=== PATIENT | male | born 1995 | race Caucasian/White ===

== ENCOUNTER 2017-11-30 20:16 | Emergency (ER) | payer MEDICAID ==
[~2017-11-30] VITALS: Ht 154.9 cm; Wt 59.0 kg
[~2017-11-30 20:16] MED LIST: GABA-529 PO; LAM15 PO; LURA40TA PO
[2017-11-30] MEDS ORDERED: ACETAMINOPHEN 325MG TABLET PO STA (22:32)
[2017-11-30 22:55] LABS: BASOPHILS % 0.4 % (0.0-2.0); EOSINOPHILS % 1.3 % (0.0-5.0); HEMATOCRIT. 43.6 % (42.0-52.0); HEMOGLOBIN. 15.3 g/dL (14.0-18.0); LYMPHOCYTES % 25.8 % (20.0-50.0); MEAN CORPUSCULAR VOLUME 93.7 fL (80.0-94.0); MEAN PLATELET VOLUME 8.5 fl (7.4-10.4); MONOCYTES % 6.4 % (2.0-8.0); NEUTROPHILS % 66.1 % (40.0-76.0); PLATELET 190 x1000/uL (130-400); RED BLOOD CELL COUNT 4.65 mill/uL (4.7-6.1)
[2017-11-30 23:01] LABS: CHLORIDE 106 mEq/L (98-107)
[2017-12-01 01:06] LABS: CLARITY URINE CLEAR (CLEAR); COLOR URINE YELLOW (YELLOW); PH URINE 8.5 (4.5-8.0); SPECIFIC GRAVITY URINE 1.016 (1.005-1.030)
[2017-12-01 01:07] LABS: KETONES URINE NEGATIVE (NEGATIVE); LEUKOCYTE ESTERASE URINE NEGATIVE (NEGATIVE); NITRITE URINE NEGATIVE (NEGATIVE); OCCULT BLOOD URINE TRACE (NEGATIVE); PROTEIN URINE NEGATIVE (NEGATIVE)
[2017-12-01 02:04] VITALS: BP 109/50
[2017-12-05 04:17] LABS: CHLAMYDIA TRACHOMATIS NAA Negative (Negative); NEISSERIA GONORRHOEAE NAA Negative (Negative)
== END 2017-12-01 04:23 | disposition home or self-care (01) ==
LOC: ER 20:16
DX: R10.30 Lower abdominal pain, unspecified (principal); R30.0 Dysuria; R39.11 Hesitancy of micturition; R39.15 Urgency of urination; R32 Unspecified urinary incontinence; J45.909 Unspecified asthma, uncomplicated; Z88.0 Allergy status to penicillin
CPT/HCPCS: 36415; 74176; 80053; 81003; 85025; 87491; 87591; 99285; A4315

== ENCOUNTER 2017-12-16 16:02 | Emergency (ER) | payer MEDICAID ==
[~2017-12-16] VITALS: Ht 154.9 cm; Wt 80.0 kg
[2017-12-16 18:20] LABS: BASOPHILS % 0.5 % (0.0-2.0); CHLORIDE 105 mEq/L (98-107); EOSINOPHILS % 1.7 % (0.0-5.0); HEMOGLOBIN. 16.2 g/dL (14.0-18.0); LYMPHOCYTES % 22.4 % (20.0-50.0); MEAN CORPUSCULAR HEMOGLOBIN 33.3 pg (28.0-32.0); MEAN CORPUSCULAR VOLUME 94.9 fL (80.0-94.0); MEAN PLATELET VOLUME 9.1 fl (7.4-10.4); MONOCYTES % 5.3 % (2.0-8.0); NEUTROPHILS % 70.1 % (40.0-76.0); PLATELET 218 x1000/uL (130-400); RED BLOOD CELL COUNT 4.85 mill/uL (4.7-6.1); RED CELL DISTRIBUTION WIDTH 14.2 % (11.6-14.6)
[2017-12-16 18:21] LABS: PROTHROMBIN TIME 10.5 sec (9.4-11.6)
[2017-12-16 21:25] LABS: CLARITY URINE TURBID (CLEAR); COLOR URINE YELLOW (YELLOW); KETONES URINE NEGATIVE (NEGATIVE); LEUKOCYTE ESTERASE URINE NEGATIVE (NEGATIVE); NITRITE URINE NEGATIVE (NEGATIVE); OCCULT BLOOD URINE NEGATIVE (NEGATIVE); PH URINE 8.5 (4.5-8.0); PROTEIN URINE NEGATIVE (NEGATIVE); SPECIFIC GRAVITY URINE 1.022 (1.005-1.030)
[2017-12-16] MEDS ORDERED: KETOROLAC 60MG/2ML VIAL IM ONE (21:45)
[2017-12-16] MEDS ORDERED: IBUPROFEN 600MG TABLET PO ONE (21:45)
[2017-12-16 21:55] VITALS: BP 129/70
== END 2017-12-16 22:05 | disposition home or self-care (01) ==
LOC: ER 16:51
DX: R10.9 Unspecified abdominal pain (principal); J45.909 Unspecified asthma, uncomplicated; F12.10 Cannabis abuse, uncomplicated; Z88.0 Allergy status to penicillin
CPT/HCPCS: 36415; 76770; 80053; 81003; 85025; 85610; 87086; 96372; 99285; J1885; Z7610

== ENCOUNTER 2018-08-06 07:03 | Emergency (ER) | payer MEDICAID ==
[~2018-08-06] VITALS: Ht 154.9 cm; Wt 84.0 kg
[2018-08-06] MEDS ORDERED: ONDANSETRON 4MG/5ML UDC PO ONE (09:45)
[2018-08-06 10:23] LABS: CLARITY URINE CLEAR (CLEAR); COLOR URINE YELLOW (YELLOW); KETONES URINE TRACE (NEGATIVE); LEUKOCYTE ESTERASE URINE 1+ (NEGATIVE); NITRITE URINE NEGATIVE (NEGATIVE); OCCULT BLOOD URINE 1+ (NEGATIVE); PH URINE 6.5 (4.5-8.0); PROTEIN URINE NEGATIVE (NEGATIVE); UROBILINOGEN URINE 0.2 E.U./dL (0.2-1.0)
[2018-08-06 10:38] VITALS: BP 120/70
== END 2018-08-06 10:52 | disposition home or self-care (01) ==
LOC: ER 07:03
DX: N39.0 Urinary tract infection, site not specified (principal); J45.909 Unspecified asthma, uncomplicated; F31.9 Bipolar disorder, unspecified; F12.10 Cannabis abuse, uncomplicated; Z88.0 Allergy status to penicillin
CPT/HCPCS: 99283

== ENCOUNTER 2022-05-01 03:35 | Emergency (ER) | payer MEDICAID, OTHER ==
[~2022-05-01] VITALS: Ht 165.1 cm; Wt 91.0 kg
[~2022-05-01 03:35] MED LIST changes: +IBUP-2029 MT; -LURA40TA PO; +LURA40TA2 PO
[2022-05-01] MEDS ORDERED: TETANUS, DIPHTHERIA, PERTUSSIS VAC/PF 0.5ML (>10YR OLD) IM ONE ×2 (04:00→09:30)
[2022-05-01 04:20] LABS: BASOPHILS % 0.6 % (0.0-2.0); EOSINOPHILS % 1.5 % (0.0-5.0); HEMATOCRIT. 42.1 % (42.0-52.0); HEMOGLOBIN. 14.4 g/dL (14.0-18.0); LYMPHOCYTES % 33.3 % (20.0-50.0); MEAN CORPUSCULAR HEMOGLOBIN 28.8 pg (28.0-32.0); MEAN CORPUSCULAR VOLUME 84.4 fL (80.0-94.0); MEAN PLATELET VOLUME 8.6 fl (7.4-10.4); MONOCYTES % 6.6 % (2.0-8.0); PLATELET 212 x1000/uL (130-400); RED BLOOD CELL COUNT 4.99 mill/uL (4.7-6.1); RED CELL DISTRIBUTION WIDTH 14.4 % (11.6-14.6)
[2022-05-01 04:21] LABS: CHLORIDE 105 mEq/L (98-107)
[2022-05-01 04:27] LABS: ETHANOL BLOOD < 10 mg/dL
[2022-05-01] MEDS: LAMOTRIGINE 150MG TABLET PO SCH ×2 (10:09→21:00)
[2022-05-01] MEDS ORDERED: LORAZEPAM 1MG TABLET PO ONE ×3 (12:00→19:15)
[2022-05-01] MEDS ORDERED: NICOTINE 14MG PATCH TD ONE (18:15)
[2022-05-01] MEDS ORDERED: GABAPENTIN 300MG CAPSULE PO ONE (18:15)
[2022-05-01] MEDS: OLANZAPINE 10MG TABLET PO SCH (21:00)
[2022-05-02] MEDS: LAMOTRIGINE 150MG TABLET PO SCH ×2 (09:48→20:43)
[2022-05-02] MEDS ORDERED: GABAPENTIN 300MG CAPSULE PO STA (09:48)
[2022-05-02] MEDS ORDERED: LORAZEPAM 1MG TABLET PO ONE (13:30)
[2022-05-02] MEDS ORDERED: NICOTINE 14MG PATCH TD ONE (20:15)
[2022-05-02] MEDS: OLANZAPINE 10MG TABLET PO SCH (20:43)
[2022-05-03] MEDS ORDERED: GABAPENTIN 300MG CAPSULE PO ONE (02:00)
[2022-05-03] MEDS ORDERED: GABAPENTIN 300MG CAPSULE PO SCH ×2 (09:29→10:00)
[2022-05-03] MEDS: LAMOTRIGINE 150MG TABLET PO SCH (09:54)
[2022-05-03] MEDS ORDERED: OLANZAPINE 10MG TABLET PO SCH (11:00)
[2022-05-03 12:37] VITALS: BP 126/74
== END 2022-05-03 13:31 | disposition home or self-care (01) ==
LOC: ER 03:35
DX: R45.851 Suicidal ideations (principal); Z20.822 Contact with and (suspected) exposure to COVID-19; F31.9 Bipolar disorder, unspecified; F20.9 Schizophrenia, unspecified; F12.10 Cannabis abuse, uncomplicated; Z88.0 Allergy status to penicillin
CPT/HCPCS: 36415; 80053; 80307; 80320; 80329; 85025; 90471; 90715; 99285; C9803; U0003; U0005; G0480

== ENCOUNTER 2022-09-21 17:30 | Emergency (ER) | payer MEDICAID, OTHER ==
[~2022-09-21] VITALS: Ht 154.9 cm; Wt 75.5 kg
[2022-09-21 18:09] VITALS: BP 143/85
[2022-09-21] MEDS ORDERED: ACETAMINOPHEN 325MG TABLET PO ONE (18:15)
[2022-09-21] MEDS ORDERED: SODIUM CHLORIDE 0.9% 1,000 ML IV ONE (18:15)
[2022-09-21 18:36] LABS: BASOPHILS % 0.7 % (0.0-2.0); EOSINOPHILS % 0.7 % (0.0-5.0); HEMATOCRIT. 44.9 % (42.0-52.0); HEMOGLOBIN. 15.2 g/dL (14.0-18.0); LYMPHOCYTES % 26.2 % (20.0-50.0); MEAN CORPUSCULAR HEMOGLOBIN 31.4 pg (28.0-32.0); MEAN CORPUSCULAR VOLUME 92.6 fL (80.0-94.0); MEAN PLATELET VOLUME 9.7 fl (7.4-10.4); MONOCYTES % 4.5 % (2.0-8.0); NEUTROPHILS % 67.9 % (40.0-76.0); PLATELET 256 x1000/uL (130-400); RED BLOOD CELL COUNT 4.85 mill/uL (4.7-6.1); RED CELL DISTRIBUTION WIDTH 14.1 % (11.6-14.6)
[2022-09-21 18:45] LABS: CHLORIDE 107 mEq/L (98-107)
[2022-09-21 18:58] LABS: HCG SCREEN NEGATIVE
[2022-09-21] MEDS ORDERED: KETOROLAC 15MG/ML VIAL IV ONE (20:30)
== END 2022-09-21 21:05 | disposition home or self-care (01) ==
LOC: ER 17:30
DX: S01.81XA Laceration without foreign body of other part of head, initial encounter (principal); S09.8XXA Other specified injuries of head, initial encounter; F31.9 Bipolar disorder, unspecified; F20.9 Schizophrenia, unspecified; X58.XXXA Exposure to other specified factors, initial encounter; Y93.9 Activity, unspecified; Y92.9 Unspecified place or not applicable; Z88.0 Allergy status to penicillin
CPT/HCPCS: 12011; 36415; 70450; 71045; 80053; 82962; 84484; 84703; 85025; 86850; 86900; 86901; 93005; 96361; 96374; 99285; J1885; J7030

== ENCOUNTER 2023-01-15 21:09 | Emergency (ER) | payer MEDICAID ==
[~2023-01-15] VITALS: Ht 154.9 cm; Wt 70.0 kg
[2023-01-15 21:19] VITALS: BP 125/80
[2023-01-15] MEDS ORDERED: MAGNESIUM/ALUMINUM HYDROXIDE/SIMETHICONE 30ML UDC PO STA (23:38)
[2023-01-15] MEDS ORDERED: ONDANSETRON 4MG ODT PO STA (23:38)
[2023-01-15] MEDS ORDERED: VISCOUS LIDOCAINE 2% 15 ML UDC PO STA (23:38)
[2023-01-15 23:58] LABS: BASOPHILS % 0.4 % (0.0-2.0); EOSINOPHILS % 0.9 % (0.0-5.0); HEMATOCRIT. 40.3 % (42.0-52.0); HEMOGLOBIN. 13.9 g/dL (14.0-18.0); MEAN CORPUSCULAR HEMOGLOBIN 32.7 pg (28.0-32.0); MEAN CORPUSCULAR VOLUME 94.8 fL (80.0-94.0); MEAN PLATELET VOLUME 8.7 fl (7.4-10.4); MONOCYTES % 5.4 % (2.0-8.0); NEUTROPHILS % 66.3 % (40.0-76.0); PLATELET 234 x1000/uL (130-400); RED BLOOD CELL COUNT 4.26 mill/uL (4.7-6.1)
[2023-01-16 00:06] LABS: CHLORIDE 106 mEq/L (98-107)
[2023-01-16] MEDS ORDERED: MAG-55 MT (00:47)
== END 2023-01-16 01:13 | disposition home or self-care (01) ==
LOC: ER 21:09
DX: K20.90 Esophagitis, unspecified without bleeding (principal); F31.9 Bipolar disorder, unspecified; F20.9 Schizophrenia, unspecified; E11.9 Type 2 diabetes mellitus without complications; Z88.0 Allergy status to penicillin
CPT/HCPCS: 36415; 80053; 85025; 99284; Q0162